=== PATIENT | female | born 1990 | race Caucasian/White ===

== ENCOUNTER → 2017-09-28 | Outpatient (CLI) | payer BC ==
[~2017-09-28] MED LIST: ANITBIOTIC PO; IBUPROFEN400 MG PO; IMITREX 25MG TA25 MG PO; KEFLEX 500MG.500 MG PO; MEDROL 4MG. DOSE4 MG PO; METFORMIN500 MG PO; PERCOCET 325 MG1 TA4 PO; PERCOCET 650 MG1 TAB PO; PRENATAL1 TA2 PO
--- NOTE | 2017-09-28 12:35 | RADIOLOGY REPORT PS360 ---
CHEST(2 VIEWS-NOT PORTABLE) HISTORY: LEFT SIDED CHEST PAIN ORDERING PHYSICIAN: Andrew Grant MD PATIENT AGE: 27 years COMPARISON: None available FINDINGS: The cardiomediastinal silhouette and pulmonary vascularity are within normal limits. The lungs are clear without infiltrates, suspicious nodules, or pleural effusions. No acute bony abnormalities. IMPRESSION: Negative chest, no acute finding
== END ==
LOC: RAD 11:39
DX: I49.9 Cardiac arrhythmia, unspecified (principal); R07.9 Chest pain, unspecified

== ENCOUNTER → 2017-09-30 | Outpatient (CLI) | payer BC | LOC: RT 13:10 | DX: R00.2 Palpitations (principal) ==

== ENCOUNTER → 2017-10-16 | Outpatient (CLI) | payer BC ==
--- NOTE | 2017-10-17 17:17 | RADIOLOGY REPORT PS360 ---
PROCEDURE: 2-D M-mode and color Doppler study INDICATIONS FOR THE TEST: Chest pain COPD Heart Murmur Tobacco SmokingX Palpitations Fatigue Syncope Edema Hypertension Diabetes Mellitus Rheumatic Fever SOB ARMENDARIZ Obesity Hyperlipidemia Family History HD Additional History ABN EKG PATIENT INFORMATION HEIGHT: 67 WEIGHT:180 GENDER: Female B/P:110/70 2-D/M-MODE INTERPRETATION: 2-D MEASUREMENTS OBSERVED VALUES IN CMS Right Ventricular Dimension (RVDd) 2.3 Interventricular Septum (Thickness)(IVsd) 1.0 Left Ventricular Internal Dimensions(LVIDd) 5.5 Left Ventricular Posterior Wall (Thickness)(LVPWd) 1.0 Aortic Root 3.3 Aortic Cusp Separation 1.9 Left Atrial Dimensions (LAD) 3.5 2D 1. Left atrium is normal size, left ventricle is normal size, there is no concentric left ventricular hypertrophy, visually estimated ejection fraction 55% with no obvious regional wall motion abnormality. 2. The right atrium and right ventricle are normal size and contractility. 3. The aortic, mitral and tricuspid valve are structurally normal. 4. The pulmonic valve is poorly visualized. 5. No significant pericardial effusion noted. DOPPLER INTERROGATION: Doppler interrogation of the aortic, mitral and tricuspid valvular presence of mild mitral and tricuspid regurgitation, tricuspid regurgitant jet velocity is insufficient for calculation of the right ventricular systolic pressure, diastolic parameters are within normal range. CONCLUSION: 1. Normal left ventricular size, preserved left ventricular systolic function, visually estimated ejection fraction 55% with no obvious regional wall motion abnormality. Diastolic parameters are within normal range. 2. Mild mitral and tricuspid regurgitation. 3. No significant pericardial effusion noted.
== END ==
LOC: RT 15:15
DX: R55 Syncope and collapse (principal)